=== PATIENT | female | born 1965 | race Caucasian/White ===

== ENCOUNTER 2016-12-11 13:08 | Emergency (ER) | payer OTHER ==
[~2016-12-11] VITALS: Ht 157.5 cm; Wt 93.0 kg
[~2016-12-11 13:08] MED LIST: CITALOPRAM20 MG; FERROUS SULFAT325 M1; HYDREA500 MG PO; METFORMIN500 MG; NAPROXEN500 M3; NEURONTIN300 M1; NORCO 5/325 MG1 TAB; TOPAMAX25 M1; TRAMADOL HCL50 MG; TYLENOL #3 300/1 TAB; ZOCOR20 M1
[2016-12-11 13:18] VITALS: BP 129/75
--- NOTE | 2016-12-11 13:23 | NUR ---
PATIENT TAKEN TO RM.#2
--- NOTE | 2016-12-11 13:32 | NUR ---
PATIENT PRESENTS TO ED WITH RUNNY NOSE, SORE THROAT, COUGH, CHEST CONGESTION X1 DAY. DENIES N/V/D; SKIN IS PINK/WARM/DRY; AAOX4 WITH EVEN AND STEADY GAIT; LUNGS CLEAR BL; HR EVEN AND REGULAR; PT DENIES ANY FEVER, CP, SOB, AT THIS TIME; PATIENT STATES PAIN OF 4/10 AT THIS TIME; VSS; PATIENT POSITIONED FOR COMFORT; HOB ELEVATED; BEDRAILS UP X2; BED DOWN. ER MD MADE AWARE OF PT STATUS.
--- NOTE | 2016-12-11 14:07 | NUR ---
Patient discharged with v/s stable. Written and verbal after care instructions given and explained. Patient alert, oriented and verbalized understanding of instructions. Ambulatory with steady gait. All questions addressed prior to discharge. ID band removed. Patient advised to follow up with PMD. Rx of ZOFRAN AND TAMIFLU given. Patient educated on indication of medication including possible reaction and side effects. Opportunity to ask questions provided and answered.
[2016-12-11 14:09] VITALS: BP 120/80
== END 2016-12-11 14:07 | disposition home or self-care (01) ==
LOC: MED 13:08
DX: B34.9 Viral infection, unspecified (principal)

== ENCOUNTER 2017-04-05 17:50 | Emergency (ER) | payer OTHER ==
[~2017-04-05] VITALS: Ht 157.5 cm; Wt 90.7 kg
[2017-04-05 17:53] VITALS: BP 120/75
[2017-04-05] MEDS ORDERED: KLONOPIN1 M1 PO (18:03)
[2017-04-05] MEDS ORDERED: LIORESAL10 MG PO (18:03)
[2017-04-05 18:49] VITALS: BP 120/75
--- NOTE | 2017-04-05 18:52 | NUR ---
PATIENT IS A 52 YO FEMALE BIB [facility] FOR LEFT FOOT PAIN SEEN BY .
== END 2017-04-05 18:49 | disposition home or self-care (01) ==
LOC: MED 17:50
DX: S93.621A Sprain of tarsometatarsal ligament of right foot, initial encounter (principal); E11.9 Type 2 diabetes mellitus without complications; Z79.899 Other long term (current) drug therapy; X58.XXXA Exposure to other specified factors, initial encounter; Y93.89 Activity, other specified; Y92.89 Other specified places as the place of occurrence of the external cause; Y99.8 Other external cause status

== ENCOUNTER 2017-04-15 16:20 | Emergency (ER) | payer OTHER ==
[~2017-04-15] VITALS: Ht 157.5 cm; Wt 90.7 kg
[~2017-04-15 16:20] MED LIST changes: +BACL10TA4 PO; +CITA-70; -CITALOPRAM20 MG; +CLON1TAB1 PO; -FERROUS SULFAT325 M1; +GABA300C1; +HYDR500C PO; -HYDREA500 MG PO; +METF500T64; -METFORMIN500 MG; -NAPROXEN500 M3; -NEURONTIN300 M1; -NORCO 5/325 MG1 TAB; +SIMV20TA1; -TOPAMAX25 M1; +TOPI25CA; +TRAM50TA3; -TRAMADOL HCL50 MG; -TYLENOL #3 300/1 TAB; -ZOCOR20 M1
[2017-04-15 16:27] VITALS: BP 90/56
--- NOTE | 2017-04-15 16:52 | NUR ---
Patient ambulated to bed 4. RN evaluating patient at bedside.
[2017-04-15] MEDS ORDERED: NACL 0.9% 1,000 ML IV ONE ×2 (17:00→18:45)
--- NOTE | 2017-04-15 17:00 | NUR ---
52F BIB FAMILY C/O DIFFICULTY BREATHING X 3 WEEKS; BL LUNG SOUNDS CLEAR, RR EVEN/UNLABORED AT THIS TIME; PT DENIES CHEST PAIN AT THIS TIME; PT C/O PRODUCTIVE COUGH W/ YELLOW PHLEGM; PT DENIES PAIN, N/V/D AT THIS TIME; PT A&OX4, PERRLA, SKIN IS WARM/DRY/INTACT AT THIS TIME; PT PLACED ON MONITOR, RESTING IN BED W/ HOB ELEVATED AND IN LOWEST POSITION; POSITIONED FOR COMFORT; ER MD MADE AWARE OF STATUS. WILL CONTINUE TO MONITOR.
--- NOTE | 2017-04-15 17:24 | NUR ---
XRAY AT BEDSIDE.
[2017-04-15 17:53] LABS: BASOPHILS # (AUTO) 0.1 K/uL (0.00-0.22); EOSINOPHILS # (AUTO) 0.2 K/uL (0-0.4); EOSINOPHILS % (AUTO) 1.9 % (0.0-4.0); HEMATOCRIT 30.3 % (36-48); LYMPHOCYTES # (AUTO) 2.6 K/uL (2.5-16.5); LYMPHOCYTES % (AUTO) 28.7 % (20.5-51.1); MEAN CORPUSCULAR HEMOGLOBIN 39 pg (27-31); MEAN CORPUSCULAR HGB CONC 33 g/dL (33-37); MEAN CORPUSCULAR VOLUME 118 fL (80-94); MONOCYTES # (AUTO) 0.4 K/uL (0.8-1.0); MONOCYTES % (AUTO) 4.8 % (1.7-9.3); NEUTROPHILS # (AUTO) 5.8 K/uL (1.8-7.7); NEUTROPHILS % (AUTO) 63.6 % (42.2-75.2); PLATELET COUNT (AUTO) 529 K/uL (140-450); RED BLOOD CELL COUNT(AUTO) 2.56 MIL/uL (4.20-5.40); RED CELL DISTRIBUTION WIDTH 14.6 % (11.6-13.7); WHITE BLOOD COUNT (AUTO) 9.1 K/uL (4.8-10.8)
--- NOTE | 2017-04-15 17:55 | NUR ---
PT AMBULATED TO RESTROOM AT THIS TIME; STEADY GAIT.
--- NOTE | 2017-04-15 17:56 | NUR ---
Note stefany in EDM - 04/15/17 at 1757 by MEDNENITA PT REMOVED C-COLLAR SPINE BY SELF AT THIS TIME; ADVISED PER TAMEKA ALVES, KEEP C-COLLAR ON UNTIL AFTER CT; TAMEKA ALVES NOTIFIED; WILL CONTINUE TO MONITOR.
--- NOTE | 2017-04-15 17:56 | NUR ---
PT REMOVED C-COLLAR SPINE BY SELF AT THIS TIME; ADVISED PER ER MD DR. ALVES, KEEP C-COLLAR ON UNTIL AFTER CT; ER MD DR. ALVES NOTIFIED; WILL CONTINUE TO MONITOR.
[2017-04-15 18:14] LABS: ALBUMIN 2.9 g/dL (3.4-5.0); ANION GAP 12.4 (8-16); CALCIUM 8.2 mg/dL (8.5-10.1); CARBON DIOXIDE 25.2 mmol/L (21-32); CREATININE 0.9 mg/dL (0.6-1.3); POTASSIUM 3.6 mmol/L (3.5-5.1); TOTAL BILIRUBIN 0.2 mg/dL (0.0-1.0); TOTAL PROTEIN, SERUM 7.3 g/dL (6.4-8.2)
[2017-04-15 18:23] LABS: CREATINE KINASE MB 0.1 ng/mL (0-3.6); PARTIAL THROMBOPLASTIN TIME 23.9 secs (22-35.6); PROTHROMBIN TIME 9.9 secs (10.8-13.4)
[2017-04-15 18:24] LABS: APPEARANCE,URINE CLEAR (CLEAR); BILIRUBIN,URINE NEGATIVE (NEGATIVE); BLOOD, URINE NEGATIVE (NEGATIVE); COLOR,URINE YELLOW (YELLOW); LEUKOCYTE ESTERASE ,URINE 1+ (NEGATIVE); NITRITE, URINE NEGATIVE (NEGATIVE); PH,URINE 6.5 (5.0-9.0); PROTEIN,URINE NEGATIVE (NEGATIVE); UGLUCOSE NEGATIVE (NEGATIVE); UROBILINOGEN,URINE 0.2 EU/dL (0.2 - 1)
[2017-04-15 18:37] LABS: RBC,URINE NONE SEEN /HPF (0-5)
[2017-04-15 18:38] LABS: BACTERIA,URINE 3+ /HPF (None Seen); SQUAMOUS EPITHELIAL CELL,UR 4-10 (MOD) /LPF (0-3 (FEW))
[2017-04-15 18:40] LABS: YEAST,URINE Rare /HPF (None Seen)
--- NOTE | 2017-04-15 19:09 | NUR ---
Pt report given to RAQUEL MERCER. Transfer of care at this time.
[2017-04-15] MEDS ORDERED: cefTRIAXone 500 MG VIAL ONE (20:16)
[2017-04-15 20:53] VITALS: BP 100/65
--- NOTE | 2017-04-15 20:53 | NUR ---
Patient discharged with v/s stable. Written and verbal after care instructions given and explained. Patient alert, oriented and verbalized understanding of instructions. Ambulatory with steady gait. All questions addressed prior to discharge. ID band removed. Patient advised to follow up with PMD TOMORROW OR RETURN TO ER IF CONDITION WORSENS. Rx of AUGMENTIN AND ACETAMINOPHEN given. Patient educated on indication of medication including possible reaction and side effects. Opportunity to ask questions provided and answered.
== END 2017-04-15 20:53 | disposition home or self-care (01) ==
LOC: MED 16:20
DX: J32.9 Chronic sinusitis, unspecified (principal); E11.40 Type 2 diabetes mellitus with diabetic neuropathy, unspecified; Z79.899 Other long term (current) drug therapy
CPT/HCPCS: 36415; 71010; 80053; 81001; 82550; 82553; 83605; 83880; 84484; 84702; 85025; 85610; 85730; 87086; 93005; 96361; 96365; 99285; J0696; J7030; Q0092

== ENCOUNTER 2017-07-29 14:39 | Emergency (ER) | payer OTHER ==
[~2017-07-29] VITALS: Ht 157.5 cm; Wt 86.2 kg
[2017-07-29 15:18] VITALS: BP 110/63
[2017-07-29] MEDS ORDERED: MORPHINE SULFATE 4 MG/ML SYR IM ONE (15:50)
[2017-07-29] MEDS ORDERED: ONDANSETRON 4 MG ODT PO ONE (15:50)
[2017-07-29 16:26] LABS: BASOPHILS # (AUTO) 0.1 K/uL (0.00-0.22); EOSINOPHILS # (AUTO) 0.1 K/uL (0-0.4)
[2017-07-29 16:29] LABS: BILIRUBIN,URINE NEGATIVE (NEGATIVE); BLOOD, URINE NEGATIVE (NEGATIVE); COLOR,URINE YELLOW (YELLOW); LEUKOCYTE ESTERASE ,URINE 3+ (NEGATIVE); NITRITE, URINE NEGATIVE (NEGATIVE); UGLUCOSE NEGATIVE (NEGATIVE)
[2017-07-29 16:31] LABS: BASOPHILS % (AUTO) 0.7 % (0.0-2.0); EOSINOPHILS % (AUTO) 1.2 % (0.0-4.0); HEMATOCRIT 32.4 % (36-48); HEMOGLOBIN 10.8 g/dL (12.0-16.0); LYMPHOCYTES # (AUTO) 2.6 K/uL (2.5-16.5); LYMPHOCYTES % (AUTO) 24.5 % (20.5-51.1); MEAN CORPUSCULAR HEMOGLOBIN 40 pg (27-31); MEAN CORPUSCULAR HGB CONC 33 g/dL (33-37); MONOCYTES # (AUTO) 0.6 K/uL (0.8-1.0); MONOCYTES % (AUTO) 5.5 % (1.7-9.3); NEUTROPHILS # (AUTO) 7.3 K/uL (1.8-7.7); NEUTROPHILS % (AUTO) 68.1 % (42.2-75.2); PLATELET COUNT (AUTO) 495 K/uL (140-450); RED BLOOD CELL COUNT(AUTO) 2.74 MIL/uL (4.20-5.40); RED CELL DISTRIBUTION WIDTH 13.1 % (11.6-13.7); WHITE BLOOD COUNT (AUTO) 10.7 K/uL (4.8-10.8)
[2017-07-29 16:32] LABS: APPEARANCE,URINE HAZY (CLEAR)
[2017-07-29 16:33] LABS: MEAN CORPUSCULAR VOLUME 118 fL (80-94)
[2017-07-29 16:36] LABS: ANION GAP 10.5 (8-16); POTASSIUM 3.5 mmol/L (3.5-5.1)
[2017-07-29 16:38] LABS: RBC,URINE 0-5 (RARE) /HPF (0-5); WBC,URINE 16-25 (MOD) /HPF (0-5)
[2017-07-29 16:45] LABS: ALBUMIN 3.5 g/dL (3.4-5.0); TOTAL BILIRUBIN 0.3 mg/dL (0.0-1.0)
[2017-07-29 17:46] VITALS: BP 101/71
== END 2017-07-29 17:46 | disposition home or self-care (01) ==
LOC: MED 14:39
DX: R19.00 Intra-abdominal and pelvic swelling, mass and lump, unspecified site (principal); M79.671 Pain in right foot; E11.9 Type 2 diabetes mellitus without complications; Z79.899 Other long term (current) drug therapy; Z79.84 Long term (current) use of oral hypoglycemic drugs
CPT/HCPCS: 36415; 73630; 74176; 80053; 81001; 85025; 87086; 96372; 99285; J2270; Q0092; S0119

== ENCOUNTER 2018-01-16 18:18 | Emergency (ER) | payer OTHER ==
[~2018-01-16] VITALS: Ht 157.5 cm; Wt 86.2 kg
[~2018-01-16 18:18] MED LIST changes: +GLU500; -METF500T64
[2018-01-16 18:40] VITALS: BP 112/73
--- NOTE | 2018-01-16 18:50 | NUR ---
PATIENT PRESENTS TO ED WITH C/O BACK AND ABDOMINAL PAIN . PT STATES SHE HAD TOTAL HYSTERECTOMY DONE ON 12/17/17 AT [facility]. ABD INCISION CLEAN DRY AND INTACT. PATIENT REPORTS THAT THEY ARE IN THE PROCESS OF MOVING AND SHE LIFTED A BIN FILLED WITH BELONGINGS YESTERDAY BEFORE SHE FELT ABD AND BACK PAIN . DENIES N/V/D; SKIN IS PINK/WARM/DRY; AAOX4 WITH EVEN AND STEADY GAIT; LUNGS CLEAR BL; HR EVEN AND REGULAR; PT DENIES ANY FEVER, CP, SOB, OR COUGH AT THIS TIME; PATIENT STATES PAIN OF 6/10 AT THIS TIME; VSS; PATIENT POSITIONED FOR COMFORT; HOB ELEVATED; BEDRAILS UP X2; BED DOWN. ER MD MADE AWARE OF PT STATUS.
[2018-01-16] MEDS ORDERED: KETOROLAC 60 MG/2 ML VIAL IM ONE (19:15)
--- NOTE | 2018-01-16 19:32 | NUR ---
MOVED TO ER CHAIR C
--- NOTE | 2018-01-16 20:09 | NUR ---
Patient discharged with v/s stable. Written and verbal after care instructions given and explained. Patient alert, oriented and verbalized understanding of instructions. Ambulatory with steady gait. All questions addressed prior to discharge. ID band removed. Patient advised to follow up with PMD. Rx of NAPROSYN 500 MG, AUGMENTIN 500 MG given. Patient educated on indication of medication including possible reaction and side effects. Opportunity to ask questions provided and answered. D/C BY DR. SMITH
[2018-01-16 20:12] VITALS: BP 98/62
== END 2018-01-16 20:09 | disposition home or self-care (01) ==
LOC: MED 18:18
DX: S33.5XXA Sprain of ligaments of lumbar spine, initial encounter (principal); S39.011A Strain of muscle, fascia and tendon of abdomen, initial encounter; J06.9 Acute upper respiratory infection, unspecified; E11.9 Type 2 diabetes mellitus without complications; Z79.84 Long term (current) use of oral hypoglycemic drugs; Z79.899 Other long term (current) drug therapy; Z90.710 Acquired absence of both cervix and uterus; X58.XXXA Exposure to other specified factors, initial encounter; Y93.89 Activity, other specified; Y92.89 Other specified places as the place of occurrence of the external cause; Y99.8 Other external cause status
CPT/HCPCS: 96372; 99283; J1885

== ENCOUNTER 2018-04-28 11:55 | Emergency (ER) | payer OTHER ==
[~2018-04-28] VITALS: Ht 157.5 cm; Wt 89.8 kg
[2018-04-28 12:04] VITALS: BP 120/71
--- NOTE | 2018-04-28 12:16 | NUR ---
PATIENT AMBULATED TO BED 2.
--- NOTE | 2018-04-28 12:30 | NUR ---
PT. CAME INTO THE ED DUE TO BURN ON ABD X 2 DAYS. 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 Site redness and pain to site. Patient denies any fever or n/v/d. 12/17/17 hysterectomy done hx-- diabetes, essential thrombocythemia
[2018-04-28] MEDS ORDERED: SILVER SULFADIAZINE 1% 50 GM JAR TP ONE (12:35)
[2018-04-28] MEDS ORDERED: MORPHINE SULFATE 2 MG/ML SYR IM ONE (12:35)
[2018-04-28] MEDS ORDERED: diphenhydrAMINE 50 MG/ML VIAL IM ONE (12:35)
[2018-04-28] MEDS ORDERED: MORPHINE SULFATE 4 MG/ML SYR ONE (12:57)
[2018-04-28 13:42] VITALS: BP 120/71
--- NOTE | 2018-04-28 13:43 | NUR ---
Patient discharged with v/s stable. Written and verbal after care instructions given and explained. Patient alert, oriented and verbalized understanding of instructions. Ambulatory with steady gait. All questions addressed prior to discharge. ID band removed. Patient advised to follow up with PMD. Rx of tramadol, vistaril, silvadine cream given. Patient educated on indication of medication including possible reaction and side effects. Opportunity to ask questions provided and answered.
== END 2018-04-28 13:43 | disposition home or self-care (01) ==
LOC: MED 11:55
DX: T21.22XA Burn of second degree of abdominal wall, initial encounter (principal); E11.9 Type 2 diabetes mellitus without complications; Z90.710 Acquired absence of both cervix and uterus; Z79.899 Other long term (current) drug therapy; Z79.84 Long term (current) use of oral hypoglycemic drugs; Y63.3 Inadvertent exposure of patient to radiation during medical care; Y78.8 Miscellaneous radiological devices associated with adverse incidents, not elsewhere classified; Y92.89 Other specified places as the place of occurrence of the external cause
CPT/HCPCS: 16020; 87070; 96372; 99284; J1200; J2270; 87186

== ENCOUNTER 2018-12-29 16:59 | Emergency (ER) | payer OTHER ==
[~2018-12-29] VITALS: Ht 157.5 cm; Wt 90.5 kg
[2018-12-29 17:13] VITALS: BP 116/76
--- NOTE | 2018-12-29 18:12 | NUR ---
pt. ambulated to ER bed 10
--- NOTE | 2018-12-29 18:20 | NUR ---
PATIENT PRESENTS TO ED WITH C/O PERSISTANT DRY HACKING COUGH X 2 DAYS ANTERIOR CHEST WALL PAIN WITH COUGHING SPELLS NO ACCESSORY MUSCLE USE NOTED . DENIES N/V/D; SKIN IS PINK/WARM/DRY; AAOX4 WITH EVEN AND STEADY GAIT; LUNGS CLEAR BL; HR EVEN AND REGULAR;; PATIENT STATES PAIN OF 0/10 AT THIS TIME; VSS; PATIENT POSITIONED FOR COMFORT; HOB ELEVATED; BEDRAILS UP X2; BED DOWN. ER MD MADE AWARE OF PT STATUS.
--- NOTE | 2018-12-29 18:51 | NUR ---
Patient discharged with v/s stable. Written and verbal after care instructions given and explained. Patient alert, oriented and verbalized understanding of instructions. Ambulatory with steady gait. All questions addressed prior to discharge. ID band removed. Patient advised to follow up with PMD. Rx of PROMETHAZINE DM/ AUGMENTIN given. Patient educated on indication of medication including possible reaction and side effects. Opportunity to ask questions provided and answered.
[2018-12-29 18:52] VITALS: BP 116/76
== END 2018-12-29 18:52 | disposition home or self-care (01) ==
LOC: MED 16:59
DX: J20.9 Acute bronchitis, unspecified (principal); E11.9 Type 2 diabetes mellitus without complications; Z90.710 Acquired absence of both cervix and uterus; Z90.89 Acquired absence of other organs; Z85.42 Personal history of malignant neoplasm of other parts of uterus; Z85.028 Personal history of other malignant neoplasm of stomach; Z79.891 Long term (current) use of opiate analgesic; Z79.84 Long term (current) use of oral hypoglycemic drugs; Z79.899 Other long term (current) drug therapy
CPT/HCPCS: 81002; 99283

== ENCOUNTER 2019-01-31 06:36 | Day surgery (SDC) | payer OTHER ==
[~2019-01-31] VITALS: Ht 157.5 cm; Wt 89.8 kg
[2019-01-31] MEDS ORDERED: INSULIN LISPRO 100 UNITS/ML VIAL SUBQ ONE ×3 (08:05→11:50)
[2019-01-31] MEDS ORDERED: INSULIN REGULAR, HUMAN 100 UNIT/ML VIAL IVP SCH (08:05)
[2019-01-31] MEDS ORDERED: INSULIN NPH HUMAN ISOPHANE 100 UNIT/ML VIAL SUBQ ONE (08:05)
[2019-01-31] MEDS ORDERED: INSULIN REGULAR, HUMAN 100 UNIT/ML VIAL SUBQ SCH (08:05)
[2019-01-31] MEDS ORDERED: fentaNYL 0.05 MG/ML VIAL ONE (08:25)
[2019-01-31] MEDS ORDERED: MIDAZOLAM 2 MG/2 ML VIAL ONE ×2 (08:25)
== END 2019-01-31 10:35 | disposition home or self-care (01) ==
LOC: MMU 06:36 → MDS 06:36
PROVIDERS: ATTEND Internal Medicine Gastroenterology
DX: K22.2 Esophageal obstruction (principal); K31.7 Polyp of stomach and duodenum; K22.10 Ulcer of esophagus without bleeding; E11.9 Type 2 diabetes mellitus without complications; E03.9 Hypothyroidism, unspecified; Z98.51 Tubal ligation status; M19.90 Unspecified osteoarthritis, unspecified site; K21.9 Gastro-esophageal reflux disease without esophagitis; E66.9 Obesity, unspecified; Z68.36 Body mass index [BMI] 36.0-36.9, adult; Z79.899 Other long term (current) drug therapy; Z90.710 Acquired absence of both cervix and uterus; Z79.891 Long term (current) use of opiate analgesic; Z85.42 Personal history of malignant neoplasm of other parts of uterus; Z85.028 Personal history of other malignant neoplasm of stomach
CPT/HCPCS: 43239; 88305; 88312; 88313; J1815; J2250; J7030; J3010

== ENCOUNTER 2019-03-20 08:39 | Emergency (ER) | payer OTHER ==
[~2019-03-20] VITALS: Ht 157.5 cm; Wt 90.8 kg
[2019-03-20 08:42] VITALS: BP 116/69
--- NOTE | 2019-03-20 08:45 | NUR ---
PT AMBULATED WITH ASSIST TO ED BED 11
--- NOTE | 2019-03-20 08:50 | NUR ---
PT PRESENTS TO ED WITH C/O RIGHT FOOT X2 YEARS, HAS BECOME UNBEARABLE LAST COUPLE DAYS. PT REPORTS INTERMITENT SHARP/THROBING PAIN AT 5/10 THAT INCREASES WITH AMBULATION. PT AAO X4, GCS 15, RESPIRATIONS EVEN AND UNALBORED, BL LUNG CLEAR. SKIN WARM/PINK/DRY, +PMSC. RT FOOT PAIN, PEDALIS PULSE PRESENTS AND STRONG, NO SWOLLEN AT THIS TIME. VSS, DR. DOSHI MADE AWARE OF PT STATUS. WILL CONTINUE TO MONITOR
[2019-03-20] MEDS ORDERED: KETOROLAC 30 MG/ML VIAL IM ONE (09:40)
--- NOTE | 2019-03-20 11:26 | NUR ---
Patient discharged with v/s stable. Written and verbal after care instructions given and explained. Patient alert, oriented and verbalized understanding of instructions. Ambulatory with steady gait. All questions addressed prior to discharge. ID band removed. Patient advised to follow up with PMD. Rx of NORCO 5/325 MG, NAPROSYN 500 MG given. Patient educated on indication of medication including possible reaction and side effects. Opportunity to ask questions provided and answered.
[2019-03-20 11:27] VITALS: BP 95/56
== END 2019-03-20 11:26 | disposition home or self-care (01) ==
LOC: MED 08:39
DX: S93.601A Unspecified sprain of right foot, initial encounter (principal); E11.9 Type 2 diabetes mellitus without complications; Z85.028 Personal history of other malignant neoplasm of stomach; Z85.42 Personal history of malignant neoplasm of other parts of uterus; Z79.899 Other long term (current) drug therapy; Z79.84 Long term (current) use of oral hypoglycemic drugs; X58.XXXA Exposure to other specified factors, initial encounter; Y93.89 Activity, other specified; Y92.89 Other specified places as the place of occurrence of the external cause; Y99.8 Other external cause status
CPT/HCPCS: 73630; 82948; 96372; 99283; J1885

== ENCOUNTER 2019-05-16 19:01 | Emergency (ER) | payer OTHER ==
[~2019-05-16] VITALS: Ht 157.5 cm; Wt 90.7 kg
[2019-05-16 19:10] VITALS: BP 110/51
--- NOTE | 2019-05-16 19:20 | NUR ---
PT AMBULATED W/ STEADY GAIT TO BED 12.
--- NOTE | 2019-05-16 19:39 | NUR ---
PT TO ED WITH C/O BILATERAL ARM AND LEG ITCHING S/P LAYING IN GRASS X 1 DAY AGO. MILD REDNESS NOTED TO BILATERAL ARMS AND LEGS. PT PLACED INTO BED, PENDING MD GIBSON.
[2019-05-16] MEDS ORDERED: diphenhydrAMINE 50 MG/ML VIAL IM ONE (19:45)
[2019-05-16] MEDS ORDERED: predniSONE 20 MG TAB PO ONE (19:45)
[2019-05-16 20:05] VITALS: BP 110/51
--- NOTE | 2019-05-16 20:06 | NUR ---
Patient discharged with v/s stable. Written and verbal after care instructions given and explained. Patient alert, oriented and verbalized understanding of instructions. Ambulatory with steady gait. All questions addressed prior to discharge. ID band removed. Patient advised to follow up with PMD. Rx of NAPROCYN, BENEDRYL, PREDINSONE, KEFLEX given. Patient educated on indication of medication including possible reaction and side effects. Opportunity to ask questions provided and answered.
== END 2019-05-16 20:06 | disposition home or self-care (01) ==
LOC: MED 19:01
DX: S80.861A Insect bite (nonvenomous), right lower leg, initial encounter (principal); S80.862A Insect bite (nonvenomous), left lower leg, initial encounter; E11.9 Type 2 diabetes mellitus without complications; Z85.028 Personal history of other malignant neoplasm of stomach; Z85.42 Personal history of malignant neoplasm of other parts of uterus; Z98.890 Other specified postprocedural states; Z79.84 Long term (current) use of oral hypoglycemic drugs; Z79.899 Other long term (current) drug therapy; W57.XXXA Bitten or stung by nonvenomous insect and other nonvenomous arthropods, initial encounter; Y93.89 Activity, other specified; Y92.89 Other specified places as the place of occurrence of the external cause; Y99.8 Other external cause status
CPT/HCPCS: 96372; 99283; J1200; J7512

== ENCOUNTER 2019-08-23 08:51 | Emergency (ER) | payer OTHER ==
[~2019-08-23] VITALS: Ht 157.5 cm; Wt 90.7 kg
[2019-08-23 08:54] VITALS: BP 130/78
--- NOTE | 2019-08-23 09:00 | NUR ---
PATIENT AMBULATED TO BED 07
--- NOTE | 2019-08-23 09:09 | NUR ---
54F c/o LUQ pain x 2 days, intermittent, sharp. Started while sitting in the car. Feels like "can't catch breathe". Denies trauma, n/v. States stress d/t son passing away recently. GAVE PT O2 NC 2L/MIN PT STATED SHE HAS HARDTIME TO CATCH BREATH. Pain now is 5, has been decreasing. Hx- high platelets, DM, DJD spine NKA . DENIES N/V/D; SKIN IS PINK/WARM/DRY; AAOX4 WITH EVEN AND STEADY GAIT; LUNGS CLEAR BL; HR EVEN AND REGULAR; PT DENIES ANY FEVER, CP, SOB, OR COUGH AT THIS TIME; PATIENT STATES PAIN OF 5/10 AT THIS TIME; VSS; PATIENT POSITIONED FOR COMFORT; HOB ELEVATED; BEDRAILS UP X2; BED DOWN. ER MADE AWARE OF PT STATUS.
[2019-08-23] MEDS ORDERED: ASPIRIN 81 MG TAB.CHEW PO ONE (09:40)
[2019-08-23 11:00] LABS: HEMATOCRIT 39.2 % (36-48); HEMOGLOBIN 13.3 g/dL (12.0-16.0); MEAN CORPUSCULAR HEMOGLOBIN 30 pg (27-31); MEAN CORPUSCULAR HGB CONC 34 g/dL (33-37); MEAN CORPUSCULAR VOLUME 87.6 fL (80-94); PLATELET COUNT (AUTO) 454 K/uL (140-450); RED BLOOD CELL COUNT(AUTO) 4.47 MIL/uL (4.20-5.40); RED CELL DISTRIBUTION WIDTH 12.7 % (11.6-13.7); WHITE BLOOD COUNT (AUTO) 6.3 K/uL (4.8-10.8)
[2019-08-23 11:09] LABS: ALBUMIN 3.3 g/dL (3.4-5.0); ANION GAP 14.6 (8-16); CARBON DIOXIDE 25.5 mmol/L (21-32); POTASSIUM 4.1 mmol/L (3.5-5.1); TOTAL BILIRUBIN 0.8 mg/dL (0.0-1.0)
[2019-08-23] MEDS ORDERED: NACL 0.9% 1,000 ML IV ONE (11:20)
[2019-08-23] MEDS ORDERED: INSULIN REGULAR, HUMAN 100 UNIT/ML VIAL SUBQ ONE ×2 (11:20→12:20)
[2019-08-23] MEDS ORDERED: LORazepam 2 MG/ML VIAL IVP ONE (11:30)
[2019-08-23] MEDS ORDERED: POTASSIUM CHLORIDE 10 MEQ TABER PO ONE (12:20)
[2019-08-23 12:52] LABS: LYMPHOCYTES % (MANUAL) 20 % (20-46); MONOCYTES % (MANUAL) 5 % (5-12)
[2019-08-23 13:27] VITALS: BP 101/66
--- NOTE | 2019-08-23 14:13 | NUR ---
Patient discharged with v/s stable. Written and verbal after care instructions given and explained. Patient alert, oriented and verbalized understanding of instructions. Ambulatory with steady gait. All questions addressed prior to discharge. ID band removed. Patient advised to follow up with PMD. Rx of HYDROXYZINE given. Patient educated on indication of medication including possible reaction and side effects. Opportunity to ask questions provided and answered.
== END 2019-08-23 14:13 | disposition home or self-care (01) ==
LOC: MED 08:51
DX: F41.9 Anxiety disorder, unspecified (principal); E11.65 Type 2 diabetes mellitus with hyperglycemia; F43.21 Adjustment disorder with depressed mood; E11.9 Type 2 diabetes mellitus without complications; Z79.84 Long term (current) use of oral hypoglycemic drugs; Z85.028 Personal history of other malignant neoplasm of stomach; Z79.899 Other long term (current) drug therapy
CPT/HCPCS: 36415; 71045; 80053; 82948; 83690; 84484; 85025; 85379; 96361; 96372; 96374; 99283; J1815; J2060; J7030

== ENCOUNTER 2019-11-06 13:06 | Emergency (ER) | payer OTHER ==
[~2019-11-06] VITALS: Ht 157.5 cm; Wt 87.5 kg
[2019-11-06 13:38] VITALS: BP 113/71
--- NOTE | 2019-11-06 14:39 | NUR ---
Pt ambulated to bed 4.
--- NOTE | 2019-11-06 14:40 | NUR ---
C/O HACKING MOIST COUGH, BODYACHES, CONGESTION, AND CHILLS X 2 DAYS FEELS WORSE TODAY.PT AWAKE ,ALERT,AMBULATORY WITH STEADY GAIT.AFEBRILE NOT IN DISTRESS. HX--DM, ESSENTIAL THROMBOCYPHENIA, ARTHRITIS, BACK PAIN RX---BACLOFEN, METFORMIN, CELEXA, VIT D 2, GABAPENTIN, KLONOPIN
--- NOTE | 2019-11-06 14:47 | NUR ---
Dr. Kumar is evaluating the patient at bedside.
--- NOTE | 2019-11-06 14:51 | NUR ---
DR JAMES AT BEDSIDE.
[2019-11-06 15:14] VITALS: BP 115/70
--- NOTE | 2019-11-06 15:14 | NUR ---
Patient discharged with v/s stable. Written and verbal after care instructions given and explained viral syndrome. Patient alert, oriented and verbalized understanding of instructions. Ambulatory with steady gait. All questions addressed prior to discharge. ID band removed. Patient advised to follow up with PMD. Rx of codeine given. Patient educated on indication of medication including possible reaction and side effects. Opportunity to ask questions provided and answered.
== END 2019-11-06 15:14 | disposition home or self-care (01) ==
LOC: MED 13:06
DX: J11.1 Influenza due to unidentified influenza virus with other respiratory manifestations (principal); E11.9 Type 2 diabetes mellitus without complications; G89.29 Other chronic pain; Z85.9 Personal history of malignant neoplasm, unspecified; Z79.899 Other long term (current) drug therapy; Z79.84 Long term (current) use of oral hypoglycemic drugs
CPT/HCPCS: 99283

== ENCOUNTER 2019-11-09 09:53 | Emergency (ER) | payer OTHER ==
[~2019-11-09] VITALS: Ht 157.5 cm; Wt 87.5 kg
[2019-11-09 10:05] VITALS: BP 108/71
--- NOTE | 2019-11-09 10:10 | NUR ---
WAIT AT LOBBY.
--- NOTE | 2019-11-09 10:50 | NUR ---
PATIENT AMBULATED TO BED 7.
--- NOTE | 2019-11-09 11:02 | NUR ---
54/F C/O ABSCESS R BREAST X 2 WEEKS. DENIES DRAINAGE, F/C. STATES "PRICKLEY SENSATION" SOMETIMES. CENTRAL AREA OF INDURATION WITH SCALING SKIN. PT STATES HAS INCREASED IN SIZE OVER LAST 2 DAYS. NO DIMPLING OF SKIN NOTED. MED HX:DM,THROMBOCYTOSIS, CHRONIC BACK PAIN,HYSTERECTOMY
--- NOTE | 2019-11-09 11:54 | NUR ---
DR PERALTA EVALUATING PT AT BEDSIDE
[2019-11-09] MEDS ORDERED: cefTRIAXone 1,000 MG in LIDOCAINE MPF 1% 2.1 ML IM ONE (12:05)
[2019-11-09] MEDS ORDERED: hydrOXYzine HCL 25 MG TAB PO ONE (12:05)
[2019-11-09] MEDS ORDERED: DEXAMETHASONE 10 MG/ML VIAL IM ONE (12:05)
[2019-11-09] MEDS ORDERED: NEOMYCIN/POLYMYXIN/BACITRACIN 0.9 GM/1 PKT TP ONE (12:05)
[2019-11-09] MEDS ORDERED: cefTRIAXone 1,000 MG VIAL ONE (12:17)
[2019-11-09] MEDS ORDERED: LIDOCAINE MPF 1% 5 ML ONE (12:18)
--- NOTE | 2019-11-09 12:32 | NUR ---
applied dressing to right upper breast
[2019-11-09 13:07] VITALS: BP 135/68
--- NOTE | 2019-11-09 13:07 | NUR ---
Patient discharged with v/s stable. Written and verbal after care instructions given and explained. Patient alert, oriented and verbalized understanding of instructions. Ambulatory with steady gait. All questions addressed prior to discharge. ID band removed. Patient advised to follow up with PMD. Rx of CLINDAMYCIN, BACTRIM, PREDNISONE given. Patient educated on indication of medication including possible reaction and side effects. Opportunity to ask questions provided and answered.
== END 2019-11-09 13:07 | disposition home or self-care (01) ==
LOC: MED 09:53
DX: S20.161A Insect bite (nonvenomous) of breast, right breast, initial encounter (principal); E11.9 Type 2 diabetes mellitus without complications; G89.29 Other chronic pain; Z90.49 Acquired absence of other specified parts of digestive tract; Z79.899 Other long term (current) drug therapy; Z85.9 Personal history of malignant neoplasm, unspecified
CPT/HCPCS: 96372; 99283; J0696; J1100; J2001

== ENCOUNTER 2020-12-19 09:12 | Emergency (ER) | payer OTHER ==
[~2020-12-19] VITALS: Ht 157.5 cm; Wt 92.2 kg
[2020-12-19 09:19] VITALS: BP 108/71
[2020-12-19] MEDS ORDERED: NACL 0.9% 1,000 ML IV ONE (09:35)
[2020-12-19 09:49] LABS: BASOPHILS # (AUTO) 0.1 K/uL (0.00-0.22); BASOPHILS % (AUTO) 0.7 % (0.0-2.0); EOSINOPHILS # (AUTO) 0.1 K/uL (0-0.4); EOSINOPHILS % (AUTO) 1.1 % (0.0-4.0); HEMATOCRIT 41.2 % (36-48); HEMOGLOBIN 13.8 g/dL (12.0-16.0); LYMPHOCYTES # (AUTO) 1.9 K/uL (2.5-16.5); LYMPHOCYTES % (AUTO) 25.3 % (20.5-51.1); MEAN CORPUSCULAR HEMOGLOBIN 29 pg (27-31); MEAN CORPUSCULAR HGB CONC 34 g/dL (33-37); MEAN CORPUSCULAR VOLUME 86.4 fL (80-94); MONOCYTES # (AUTO) 0.4 K/uL (0.8-1.0); MONOCYTES % (AUTO) 5.3 % (1.7-9.3); NEUTROPHILS # (AUTO) 5.2 K/uL (1.8-7.7); NEUTROPHILS % (AUTO) 67.6 % (42.2-75.2); PLATELET COUNT (AUTO) 561 K/uL (140-450); RED BLOOD CELL COUNT(AUTO) 4.77 MIL/uL (4.20-5.40); RED CELL DISTRIBUTION WIDTH 13.4 % (11.6-13.7); WHITE BLOOD COUNT (AUTO) 7.7 K/uL (4.8-10.8)
[2020-12-19 10:04] LABS: ALBUMIN 3.7 g/dL (3.4-5.0); ANION GAP 12.4 (8-16); CARBON DIOXIDE 26.5 mmol/L (21-32); POTASSIUM 3.9 mmol/L (3.5-5.1); TOTAL BILIRUBIN 0.9 mg/dL (0.0-1.0)
[2020-12-19] MEDS ORDERED: INSULIN REGULAR, HUMAN 100 UNIT/ML VIAL SUBQ ONE (10:10)
[2020-12-19 11:43] VITALS: BP 114/74
== END 2020-12-19 11:44 | disposition home or self-care (01) ==
LOC: MED 09:12
DX: E11.65 Type 2 diabetes mellitus with hyperglycemia (principal); R53.1 Weakness; Z79.899 Other long term (current) drug therapy
CPT/HCPCS: 36415; 80053; 81002; 82948; 84484; 85025; 93005; 96360; 96372; 99284; J1815; J7030

== ENCOUNTER 2021-03-10 12:41 | Emergency (ER) | payer OTHER ==
[~2021-03-10] VITALS: Ht 157.5 cm; Wt 89.8 kg
[2021-03-10 12:49] VITALS: BP 108/69
--- NOTE | 2021-03-10 12:50 | NUR ---
56 y/o female c/c nausea and vomiting x1 week. Patient denies recent travel or Covid-19 contact. Per patient, was on treatment for H. Pylori but could not tolerate the treatment. Also c/o sharp abdominal pain 02/19 today. PMH:DM, HLD, depression, anxiety MEDS: Metformin, Glipizide, Ozempic, Gabapentin, Topamax, Celexa NKA hysterectomy 2018
--- NOTE | 2021-03-10 12:55 | NUR ---
Patient ambulated to bed 11 with steady gait.
--- NOTE | 2021-03-10 13:00 | NUR ---
Patient ambulated to restroom and collected a urine specimen.
--- NOTE | 2021-03-10 13:36 | NUR ---
JANE Workman is evaluating the patient at bedside.
[2021-03-10] MEDS ORDERED: ONDANSETRON 4 MG/2 ML VIAL IVP ONE (13:45)
[2021-03-10] MEDS ORDERED: NACL 0.9% 500 ML IV ONE (13:45)
--- NOTE | 2021-03-10 13:57 | NUR ---
LAB AT BEDSIDE FOR BLOOD DRAW.
[2021-03-10 14:06] LABS: BASOPHILS # (AUTO) 0.1 K/uL (0.00-0.22); BASOPHILS % (AUTO) 0.8 % (0.0-2.0); EOSINOPHILS % (AUTO) 0.4 % (0.0-4.0); HEMATOCRIT 42.4 % (36-48); HEMOGLOBIN 14.4 g/dL (12.0-16.0); LYMPHOCYTES # (AUTO) 2.2 K/uL (2.5-16.5); LYMPHOCYTES % (AUTO) 18.8 % (20.5-51.1); MEAN CORPUSCULAR HEMOGLOBIN 29 pg (27-31); MEAN CORPUSCULAR HGB CONC 34 g/dL (33-37); MEAN CORPUSCULAR VOLUME 85.6 fL (80-94); MONOCYTES # (AUTO) 0.5 K/uL (0.8-1.0); MONOCYTES % (AUTO) 4.4 % (1.7-9.3); NEUTROPHILS # (AUTO) 8.8 K/uL (1.8-7.7); NEUTROPHILS % (AUTO) 75.6 % (42.2-75.2); PLATELET COUNT (AUTO) 618 K/uL (140-450); RED BLOOD CELL COUNT(AUTO) 4.95 MIL/uL (4.20-5.40); RED CELL DISTRIBUTION WIDTH 13.1 % (11.6-13.7); WHITE BLOOD COUNT (AUTO) 11.7 K/uL (4.8-10.8)
[2021-03-10 14:17] LABS: ALBUMIN 4.1 g/dL (3.4-5.0); ANION GAP 14.9 (8-16); CARBON DIOXIDE 24.6 mmol/L (21-32); CREATININE 1.2 mg/dL (0.6-1.3); POTASSIUM 3.5 mmol/L (3.5-5.1); TOTAL BILIRUBIN 1.2 mg/dL (0.0-1.0)
--- NOTE | 2021-03-10 15:09 | NUR ---
JANE Workman at the bedside re-evaluating patient
[2021-03-10] MEDS ORDERED: METO5SOL19 PO (15:18)
[2021-03-10] MEDS ORDERED: ONDA4TAB PO (15:18)
[2021-03-10 15:32] VITALS: BP 104/71
--- NOTE | 2021-03-10 15:32 | NUR ---
Patient discharged with v/s stable. Written and verbal after care instructions given and explained. Patient alert, oriented and verbalized understanding of instructions. Ambulatory with steady gait. All questions addressed prior to discharge. ID band removed. Patient advised to follow up with PMD. Rx of Metoclopramide, Ondansetron given. Patient educated on indication of medication including possible reaction and side effects. Opportunity to ask questions provided and answered.
--- NOTE | 2021-03-12 02:04 | NUR ---
LATE ENTRY- NORMAL SALINE 0.9% DISCONTINUED AT 1600
== END 2021-03-10 15:32 | disposition home or self-care (01) ==
LOC: MED 12:41
DX: R11.2 Nausea with vomiting, unspecified (principal); R10.13 Epigastric pain; E11.9 Type 2 diabetes mellitus without complications; Z79.899 Other long term (current) drug therapy
CPT/HCPCS: 36415; 80053; 81002; 83690; 85025; 96361; 96374; 99283; J2405; J7030

== ENCOUNTER 2021-03-19 16:32 | Emergency (ER) | payer OTHER ==
[~2021-03-19] VITALS: Ht 157.5 cm; Wt 91.2 kg
[~2021-03-19 16:32] MED LIST changes: +METO5SOL19 PO; +ONDA4TAB PO
[2021-03-19 16:38] VITALS: BP 104/74
[2021-03-19] MEDS ORDERED: KETOROLAC 30 MG/ML VIAL IM ONE (17:00)
--- NOTE | 2021-03-19 17:29 | NUR ---
56/F presents to ED with c/o right foot pain since last night. Patient states she felt slight pain when she went to bed and woke up in worsening pain. Patient denies any trauma. Dorsum of right foot appears slightly red and swollen. Patient denies taking any medication at home for pain, states she is able to ambulate on the foot but it is progressively worsening the pain.
[2021-03-19] MEDS ORDERED: IBUP-2213 PO (17:55)
[2021-03-19 18:04] VITALS: BP 104/74
== END 2021-03-19 18:03 | disposition home or self-care (01) ==
LOC: MED 16:32
DX: M79.671 Pain in right foot (principal); E11.9 Type 2 diabetes mellitus without complications; Z79.899 Other long term (current) drug therapy
CPT/HCPCS: 73630; 96372; 99283; J1885

== ENCOUNTER 2021-05-24 08:39 | Emergency (ER) | payer OTHER ==
[~2021-05-24] VITALS: Ht 157.5 cm; Wt 88.6 kg
[~2021-05-24 08:39] MED LIST changes: +IBUP-2213 PO
[2021-05-24 08:40] VITALS: BP 129/78
--- NOTE | 2021-05-24 08:52 | NUR ---
Patient ambulated to bed 11. RN evaluating the patient at bedside.
--- NOTE | 2021-05-24 08:55 | NUR ---
RECEIVED 54Y/O FEMALE TO BED 11, C/O CHEST PAIN ONSET YESTERDAY, POINTS TO UPPER LEFT CHEST WALL, REPRODUCED WITH PRESSURE, ENDORSES PERIODS OF SOB, ENDORSES FEELING CLAMMY AT THIS TIME PATIENTS SKIN IS WARM AND DRY, RESP EVEN AND UNLABORED, CLEAR BREATH SOUNDS ON AUSCULTATION. ABDOMEN IS SOFT AND NON DISTENDED. MOVES ALL EXTREMITES AND WALKED IN WITH UPRIGHT STEADY GAIT. PATIENT ENDORSES FEELING ANXIOUS. 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 TECH IN FOR EKG, DR DOSHI AT BEDSIDE FOR EXAM AND EVAL
--- NOTE | 2021-05-24 09:06 | NUR ---
EMT at bedside.
[2021-05-24] MEDS ORDERED: ASPIRIN 325 MG TAB PO ONE (09:10)
--- NOTE | 2021-05-24 09:10 | NUR ---
Blood sample collected ,walked to lab and handed to CPT. Fabio
[2021-05-24 09:34] LABS: BASOPHILS % (AUTO) 0.6 % (0.0-2.0); EOSINOPHILS # (AUTO) 0.1 K/uL (0-0.4); EOSINOPHILS % (AUTO) 1.5 % (0.0-4.0); HEMATOCRIT 38.9 % (36-48); HEMOGLOBIN 12.8 g/dL (12.0-16.0); LYMPHOCYTES # (AUTO) 1.6 K/uL (2.5-16.5); LYMPHOCYTES % (AUTO) 20.8 % (20.5-51.1); MEAN CORPUSCULAR HEMOGLOBIN 29 pg (27-31); MEAN CORPUSCULAR HGB CONC 33 g/dL (33-37); MEAN CORPUSCULAR VOLUME 87.4 fL (80-94); MONOCYTES # (AUTO) 0.3 K/uL (0.8-1.0); MONOCYTES % (AUTO) 3.7 % (1.7-9.3); NEUTROPHILS # (AUTO) 5.8 K/uL (1.8-7.7); NEUTROPHILS % (AUTO) 73.4 % (42.2-75.2); PLATELET COUNT (AUTO) 514 K/uL (140-450); RED BLOOD CELL COUNT(AUTO) 4.45 MIL/uL (4.20-5.40); RED CELL DISTRIBUTION WIDTH 13.6 % (11.6-13.7); WHITE BLOOD COUNT (AUTO) 7.9 K/uL (4.8-10.8)
[2021-05-24 09:50] LABS: ALBUMIN 3.3 g/dL (3.4-5.0); ANION GAP 14.5 (8-16); CARBON DIOXIDE 23.2 mmol/L (21-32); POTASSIUM 3.7 mmol/L (3.5-5.1); TOTAL BILIRUBIN 0.6 mg/dL (0.0-1.0)
[2021-05-24] MEDS ORDERED: ASPIRIN 325 MG TAB ONE (10:27)
--- NOTE | 2021-05-24 11:37 | NUR ---
RESTING QUIETLY IN NSR, SKIN IS WARM AND DRY, NO COMPLAINTS OF CP AT THIS TIME,
--- NOTE | 2021-05-24 12:29 | NUR ---
REPEAT TROPONIN DRAWN AND SENT TO LAB.
[2021-05-24] MEDS ORDERED: NAPR-54 PO (14:25)
[2021-05-24 14:39] VITALS: BP 114/78
== END 2021-05-24 14:38 | disposition home or self-care (01) ==
LOC: MED 08:39
DX: R07.89 Other chest pain (principal); E11.9 Type 2 diabetes mellitus without complications; Z90.710 Acquired absence of both cervix and uterus; Z98.890 Other specified postprocedural states; Z79.899 Other long term (current) drug therapy
CPT/HCPCS: 36415; 71045; 80053; 83690; 84484; 85025; 93005; 99285

== ENCOUNTER 2021-08-12 08:54 | Emergency (ER) | payer OTHER ==
[~2021-08-12] VITALS: Ht 157.5 cm; Wt 89.8 kg
[~2021-08-12 08:54] MED LIST changes: +NAPR-54 PO
[2021-08-12 09:02] VITALS: BP 124/79
--- NOTE | 2021-08-12 09:10 | NUR ---
Patient ambulated to bed 08 with steady/even gait
--- NOTE | 2021-08-12 09:10 | NUR ---
56 y/o F BIB self from home c/o tooth pain since Sunday. Patient A&Ox4 states pain since Sunday that is worsening. Reports dentist appointment 08/19/21, however, unable to control pain at home. States Advil 250mg at 0700 without relief to pain. 06/21, throbbing/constant, radiating to center of mouth. Denies nausea, vomiting, fever/chills, cough, cold-like symptoms. No distress noted. VSS; respirations even/unlabored. Bed locked in lowest position, side rails x1. PMH: DM Meds: Metformin, gabapentin NKA Sx: Denies
--- NOTE | 2021-08-12 09:15 | NUR ---
Dr. Billings is evaluating patient at bedside
[2021-08-12] MEDS ORDERED: ACET-8386 PO (09:30)
[2021-08-12] MEDS ORDERED: PENI500T20 PO (09:30)
[2021-08-12 09:36] VITALS: BP 124/79
--- NOTE | 2021-08-12 09:36 | NUR ---
NO NURSING INTERVENTIONS IMPLEMENTED
--- NOTE | 2021-08-12 09:36 | NUR ---
Patient discharged with v/s stable. Written and verbal after care instructions given and explained. Patient alert, oriented and verbalized understanding of instructions. Ambulatory with steady gait. All questions addressed prior to discharge. ID band removed. Patient advised to follow up with PMD. Rx of HYDROCODONE/ACETAMINOPHEN AND PENICILLIN given. Patient educated on indication of medication including possible reaction and side effects. Opportunity to ask questions provided and answered.
== END 2021-08-12 09:36 | disposition home or self-care (01) ==
LOC: MED 08:54
DX: L08.9 Local infection of the skin and subcutaneous tissue, unspecified (principal); R51.9 Headache, unspecified; K08.89 Other specified disorders of teeth and supporting structures; E11.9 Type 2 diabetes mellitus without complications; Z79.899 Other long term (current) drug therapy
CPT/HCPCS: 99283

== ENCOUNTER 2022-11-13 08:59 | Emergency (ER) | payer OTHER ==
[~2022-11-13] VITALS: Ht 157.5 cm; Wt 81.6 kg
[~2022-11-13 08:59] MED LIST changes: +ACET-8905 PO; +DEC4 PO; +SIMV-369; -SIMV20TA1
[2022-11-13 09:01] VITALS: BP 137/70
--- NOTE | 2022-11-13 09:03 | NUR ---
PT AMBULATED TO BED 9
--- NOTE | 2022-11-13 09:19 | NUR ---
PATIENT PRESENTS TO ED WITH CHEST PAIN X 5 MONTHS . PT STATES "I WAS WAITING FOR IT TO GO AWAY" . DENIES N/V/D; SKIN IS PINK/WARM/DRY; AAOX4 WITH EVEN AND STEADY GAIT; LUNGS CLEAR BL; HR EVEN AND REGULAR; PT DENIES ANY FEVER, CP, SOB, OR COUGH AT THIS TIME; PATIENT STATES PAIN OF 0/10 AT THIS TIME; VSS; PATIENT POSITIONED FOR COMFORT; HOB ELEVATED; BEDRAILS UP X2; BED DOWN. ER MD MADE AWARE OF PT STATUS.
[2022-11-13] MEDS ORDERED: NIRM1TAB PO (11:26)
[2022-11-13] MEDS ORDERED: MUC600 PO (11:26)
[2022-11-13 11:47] VITALS: BP 139/76
--- NOTE | 2022-11-13 11:48 | NUR ---
Patient discharged with v/s stable. Written and verbal after care instructions given and explained. Patient alert, oriented and verbalized understanding of instructions. Ambulatory with steady gait. All questions addressed prior to discharge. ID band removed. Patient advised to follow up with PMD. Rx was given and electronically sent. Patient educated on indication of medication including possible reaction and side effects. Opportunity to ask questions provided and answered.
== END 2022-11-13 11:47 | disposition home or self-care (01) ==
LOC: MED 08:59
DX: U07.1 COVID-19 (principal); R50.9 Fever, unspecified; R05.9 Cough, unspecified; E11.9 Type 2 diabetes mellitus without complications; Z79.84 Long term (current) use of oral hypoglycemic drugs; Z79.899 Other long term (current) drug therapy; Z98.890 Other specified postprocedural states
CPT/HCPCS: 71046; 99284

== ENCOUNTER 2023-03-20 15:12 | Emergency (ER) | payer OTHER ==
[~2023-03-20] VITALS: Ht 157.5 cm; Wt 104.3 kg
[~2023-03-20 15:12] MED LIST changes: +MUC600 PO; +NIRM1TAB PO
[2023-03-20 15:15] VITALS: BP 99/64
--- NOTE | 2023-03-20 15:36 | NUR ---
AMB. TO BED 2 W NO DIFFICULTY, NO ACUTE DISTRESS
--- NOTE | 2023-03-20 15:37 | NUR ---
PT. IS NOT ABLE TO PROVIDE URINE NOW. PT. TRIED TWICE. RN NOTIFIED
[2023-03-20] MEDS ORDERED: ONDANSETRON 4 MG/2 ML VIAL IVP ONE (15:50)
[2023-03-20] MEDS ORDERED: NACL 0.9% 1,000 ML IV ONE (15:50)
[2023-03-20] MEDS ORDERED: FAMOTIDINE 20 MG/2 ML VIAL IVP ONE (15:50)
[2023-03-20] MEDS ORDERED: ALUMINUM HYD/MAG/SIMETHICONE 30 ML UDC PO ONE (15:50)
[2023-03-20 16:09] LABS: BASOPHILS # (AUTO) 0.1 K/uL (0.00-0.22); BASOPHILS % (AUTO) 0.7 % (0.0-2.0); EOSINOPHILS # (AUTO) 0.1 K/uL (0-0.4); EOSINOPHILS % (AUTO) 1.4 % (0.0-4.0); HEMATOCRIT 40.4 % (36-48); HEMOGLOBIN 13.8 g/dL (12.0-16.0); LYMPHOCYTES # (AUTO) 2.2 K/uL (2.5-16.5); LYMPHOCYTES % (AUTO) 24.9 % (20.5-51.1); MEAN CORPUSCULAR HEMOGLOBIN 29 pg (27-31); MEAN CORPUSCULAR HGB CONC 34 g/dL (33-37); MEAN CORPUSCULAR VOLUME 83.5 fL (80-94); MONOCYTES # (AUTO) 0.4 K/uL (0.8-1.0); MONOCYTES % (AUTO) 5.1 % (1.7-9.3); NEUTROPHILS # (AUTO) 5.9 K/uL (1.8-7.7); NEUTROPHILS % (AUTO) 67.9 % (42.2-75.2); PLATELET COUNT (AUTO) 569 K/uL (140-450); RED BLOOD CELL COUNT(AUTO) 4.84 MIL/uL (4.20-5.40); WHITE BLOOD COUNT (AUTO) 8.7 K/uL (4.8-10.8)
--- NOTE | 2023-03-20 16:16 | NUR ---
PT C/O EPIGASTRIC PAIN, DIARRHEA, ABD BLOATING, EXCESSIVE BURPING W/ODOR. SAFETY MAINTAINED.
[2023-03-20 16:42] LABS: ALBUMIN 3.7 g/dL (3.4-5.0); ANION GAP 12.4 (8-16); ASPARTATE AMINOTRANSFERASE 15 U/L (15-37); CHLORIDE 102 mmol/L (98-107); GFR ARICAN-AMERICAN 74 mL/min (>90); GLUCOSE 169 mg/dL (74-106); LIPASE 142 U/L (73-393); POTASSIUM 3.4 mmol/L (3.5-5.1); SODIUM SERUM 137 mmol/L (136-145); TOTAL BILIRUBIN 0.4 mg/dL (0.0-1.0); UREA NITROGEN, BLOOD 15 mg/dL (7-18)
[2023-03-20 17:34] LABS: APPEARANCE,URINE CLEAR (CLEAR); BILIRUBIN,URINE NEGATIVE (NEGATIVE); BLOOD, URINE TRACE-I (NEGATIVE); COLOR,URINE YELLOW (YELLOW); LEUKOCYTE ESTERASE ,URINE NEGATIVE (NEGATIVE); NITRITE, URINE NEGATIVE (NEGATIVE); UGLUCOSE 3+ (NEGATIVE)
[2023-03-20] MEDS ORDERED: OMEP40EC23 PO (17:35)
[2023-03-20] MEDS ORDERED: SUCR1TAB35 PO (17:35)
[2023-03-20] MEDS ORDERED: ONDA-188 SL (17:35)
[2023-03-20 17:48] LABS: CALCIUM OXALATE CRYSTALS,UR 0-10 /HPF (None Seen)
[2023-03-20] MEDS ORDERED: CEPH-588 PO (17:58)
--- NOTE | 2023-03-20 18:20 | NUR ---
The patient's care was reviewed and supervised by ED Agency Nurse 8, RN, RN.
--- NOTE | 2023-03-20 18:29 | NUR ---
IV removed, catheter intact and site benign. Applied folded 4x4 gauze and tape to stop bleeding.
[2023-03-20 18:30] VITALS: BP 98/61
--- NOTE | 2023-03-20 18:31 | NUR ---
Patient discharged with v/s stable. Written and verbal after care instructions given and explained. Patient alert, oriented and verbalized understanding of instructions. Ambulatory with steady gait. All questions addressed prior to discharge. ID band removed. Patient advised to follow up with PMD. Rx of KEFLEX, PROLOSEC, ZOFRAN, CARAFETE given. Patient educated on indication of medication including possible reaction and side effects. Opportunity to ask questions provided and answered.
== END 2023-03-20 18:30 | disposition home or self-care (01) ==
LOC: MED 15:12
DX: N30.00 Acute cystitis without hematuria (principal); D75.839 Thrombocytosis, unspecified; E11.9 Type 2 diabetes mellitus without complications; Z79.4 Long term (current) use of insulin; Z79.899 Other long term (current) drug therapy; Z90.710 Acquired absence of both cervix and uterus
CPT/HCPCS: 36415; 74176; 80053; 81001; 83690; 84484; 85025; 87086; 93005; 96374; 96375; 99285; J2405; J3490; J7030

== ENCOUNTER 2023-05-09 08:49 | Emergency (ER) | payer OTHER ==
[~2023-05-09] VITALS: Ht 157.5 cm; Wt 90.7 kg
[~2023-05-09 08:49] MED LIST changes: +CEPH-588 PO; -GABA300C1; +GABA300C55; +OMEP40EC23 PO; +ONDA-188 SL; +SUCR1TAB35 PO
[2023-05-09 08:57] VITALS: BP 83/57; PULSE 73; RESP 17; TEMP 97.7; O2SAT 97
--- NOTE | 2023-05-09 09:01 | NUR ---
pt ambulatory to bed 05
[2023-05-09 09:45] VITALS: O2SAT 97
--- NOTE | 2023-05-09 09:45 | NUR ---
58YO FEMALE PT C/O SHARP 6/10 L FLANK PAIN XTODAY. REPORTS SUDDEN CONSTANT ONSET. DENIES DYSURIA, N/V/D, FEVER,CHILLS ,RECENT INJURY OR TAKING MEDICATION. STATES PREVIOUS S/S 30 YEARS AGO TO STENOSIS . PT AAOX4, HOB POSITIONED PER COMFORT. 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 HX: DM, R BUNDLE BRUNCH BLOCK NKA
--- NOTE | 2023-05-09 10:10 | NUR ---
MD TIMMONS AT BEDSIDE FOR EVALUATION
[2023-05-09] MEDS ORDERED: LIDOCAINE MPF 1% 10 MG/ML VIAL INJ ONE (10:20)
[2023-05-09] MEDS ORDERED: KETOROLAC 15 MG/ML VIAL IVP ONE (10:20)
[2023-05-09] MEDS ORDERED: NAPR-1704 PO (11:27)
--- NOTE | 2023-05-09 11:34 | NUR ---
IV removed, catheter intact and site benign. Applied folded 4x4 gauze and tape to stop bleeding.
[2023-05-09 11:36] VITALS: BP 99/60; PULSE 70; RESP 17; TEMP 97.7; O2SAT 98
--- NOTE | 2023-05-09 11:36 | NUR ---
Patient discharged with v/s stable. Written and verbal after care instructions FOR ACUTE BACK PAIN ,MUSCLE CRAMPS AND SPASMS given and explained. Patient alert, oriented and verbalized understanding of instructions. Ambulatory with steady gait. All questions addressed prior to discharge. ID band removed. Patient advised to follow up with PMD. Rx of NAPROXEN given. Opportunity to ask questions provided and answered.
--- NOTE | 2023-05-09 13:14 | NUR ---
The patient's care was reviewed and supervised by ODETTE HARRIS RN.
== END 2023-05-09 11:36 | disposition home or self-care (01) ==
LOC: MED 08:49
DX: M62.830 Muscle spasm of back (principal); E11.9 Type 2 diabetes mellitus without complications; Z79.4 Long term (current) use of insulin; Z79.899 Other long term (current) drug therapy; Z90.710 Acquired absence of both cervix and uterus
CPT/HCPCS: 20552; 96374; 99284; J1885; J2001

== ENCOUNTER 2023-10-03 16:02 | Emergency (ER) | payer OTHER ==
[~2023-10-03] VITALS: Ht 157.5 cm; Wt 88.0 kg
[~2023-10-03 16:02] MED LIST changes: +NAPR-1704 PO
[2023-10-03 16:08] VITALS: BP 101/72; PULSE 79; RESP 15; TEMP 97.1; O2SAT 96
[2023-10-03] MEDS ORDERED: KETOROLAC 30 MG/ML VIAL IM ONE (16:50)
[2023-10-03] MEDS ORDERED: NAPR-1704 PO (17:38)
[2023-10-03 17:46] VITALS: BP 101/72; PULSE 79; RESP 15; TEMP 97.1; O2SAT 96
== END 2023-10-03 17:44 | disposition home or self-care (01) ==
LOC: MED 16:02
DX: M72.2 Plantar fascial fibromatosis (principal); E11.9 Type 2 diabetes mellitus without complications; Z79.4 Long term (current) use of insulin; Z79.899 Other long term (current) drug therapy
CPT/HCPCS: 73630; 96372; 99283; J1885